=== PATIENT | female | born 1950 | race Caucasian/White ===

== ENCOUNTER → 2020-09-03 02:41 | Outpatient (CLI) | payer MEDICARE, OTHER, SELFPAY ==
[2020-09-03 21:05] LABS: SARS-CoV-2 RNA PCR Negative
== END ==
PROVIDERS: Visit Provider Surgery Plastic and Reconstructive Surgery
DX: Z01.812 Encounter for preprocedural laboratory examination (principal); Z20.822 Contact with and (suspected) exposure to COVID-19
CPT/HCPCS: C9803; U0003; U0005

== ENCOUNTER 2020-09-06 00:22 | Day surgery (SDC) | payer OTHER, SELFPAY ==
[2020-08-30 13:09] VITALS: BMI 18.7
--- NOTE | 2020-09-05 08:42 | P.PNAN_ITS ---
Anes - Initial Pre Proc Eval Procedure: Operation Date: 09/06/20 07:30 Proposed Procedures p Bilateral Breast Implant Exchange With Possible Capsulectomy - Nishant Ang MD Date/Time: 09/05/20 08:42 Surgeon: Nishant Ang MD Pre Op Diagnosis: Breast Implant Rupture Patient Data Age: 70 Gender: F Height: 1.59 m Weight: 47.27 kg Allergies Allergy/AdvReac Type Severity Reaction Status Date / Time Penicillins Allergy Rash Verified 08/30/20 13:01 Sulfa (Sulfonamide Allergy Rash Verified 08/30/20 13:01 Antibiotics) Home Medications Medication Instructions Recorded Confirmed Type calcium carbonate 600 mg PO DAILY 06/25/20 08/30/20 History cholecalciferol (vitamin D3) 50 50 mcg PO DAILY 06/25/20 08/30/20 History mcg (2,000 unit) capsule folic acid 400 mcg tablet 0.4 mg PO DAILY 06/25/20 08/30/20 History levothyroxine 75 mcg tablet 75 mcg PO DAILY 06/25/20 08/30/20 History meloxicam 7.5 mg tablet 7.5 mg PO DAILY 06/25/20 08/30/20 History multivitamin 1 cap PO DAILY 06/25/20 08/30/20 History docusate sodium 100 mg capsule 100 mg PO DAILY #14 cap 08/20/20 08/30/20 Rx ondansetron HCl 4 mg tablet 4 mg PO Q8H #28 tablet 08/20/20 08/30/20 Rx carisoprodol 350 mg tablet 350 mg PO TID PRN #21 tablet 08/22/20 08/30/20 Rx oxycodone-acetaminophen 5 mg-325 1 tablet PO Q6H PRN #15 tablet 08/22/20 08/30/20 Rx mg tablet omega [id number] oil [[place] 3 1 cap PO DAILY 08/30/20 08/30/20 History Fish Oil] Patient hx anesthesia problems: post op nausea/vomiting Family hx anesthesia problems: none PMFSH Past Medical History Medical History (Updated 09/05/20 @ 08:44 by Marcus Bishop DO) Arthritis Hypothyroidism Surgical History Surgical History History of breast augmentation 1986 History of cataract extraction Left 1993, Right 1999 History of thyroidectomy 1964 History of tubal ligation 1982 Social History Social History Smoking packs per day: 0.5 Smoking cigarettes per day: 10.0 Years smoked: 2 Smoking pack-years: 1.00 Smoking status: Former smoker Tobacco type: cigarettes Second hand tobacco smoke exposure: No Additional smoking assessment comments: QUIT 1980 Alcohol intake: current Drinks per week: 3 Alcohol use details: WINE Substance use: never Substance use type: does not use Living arrangements: alone Spiritual care concerns: No Anes - Eval Final PreProcedure Day of Procedure 09/05/20 08:42 Patient weight: thin Heart: regular rate and rhythm Lungs: clear to auscultation and normal air movement Airway: Mallampati scale class II Neurological: alert and oriented Last oral intake: >/= 8 hours ASA classification: II Emergent: no Anesthetic plan: proceed Anesthesia type and monitoring: general LMA and standard monitoring Informed Consent: The patient's anesthetic plan and its attendant risks and benefits were discussed with the patient/family/POA. Questions were solicited and answers provided to the satisfaction of the patient/family/POA.
[2020-09-06] VITALS (10 sets, daily range): BP systolic 119–161; BP diastolic 71–89; PULSE 60–74; RESP 12–18; TEMP 36.1–37; O2SAT 97–100
[2020-09-06] MEDS: LACTATED RINGERS 1,000 ML 30 ML IV CONT ×2 (06:33→09:02)
--- NOTE | 2020-09-06 07:00 | WPDHPUPDATE1 ---
History and Physical Update Update Date/Time: 09/06/20 07:00 History and Physical has been reviewed, including an updated exam of the patient. There are NO changes in the patient's condition. Risks, benefits, and alternatives have been discussed and questions answered. Patient agrees to proceed with procedure.
--- NOTE | 2020-09-06 07:18 | PM.PROC ---
Procedure Note - Detailed Date of procedure: 09/06/20 Pre-op diagnosis: Breast Implant Rupture Post-op diagnosis: same Procedure performed: Bilateral breast implant exchange Description of procedure: Patient was marked in the preoperative holding area with her verification. Risks, benefits, alternatives were discussed in extensive detail. I want her to be very realistic about the risks involved as well as expectations. She understands to achieve the goals she is looking for she may have to lower the IMF. This was marked out. As very up front honest about the risks of lowering the IMF immediate long-term. She would like to change the approach to an IMF approach as she previously had a periareolar approach. She understands is revisions would be at her expense. Answered all of her questions to her satisfaction today and consent obtained. She was taken to the operating room placed supine on the operating room table. Anesthesia was provided by anesthesiology and prepped and draped in a standard sterile fashion. Surgical time-out was taken. Tegaderm nipple Edward were placed. 1% lidocaine and 0.25% Marcaine with epinephrine was used to provide a field block. A 15 blade used to make an incision along the IMF. Dissection was continued down elevated just superficial to the capsule removing as much capsule as possible. Implants were removed bilateral. They were grossly ruptured. I copiously irrigated with more than 3 L of bacitracin containing saline solution on TUR tubing. I then changed gloves and again irrigated with an additional 3 L of bacitracin containing saline solution. I adjusted the capsule as necessary for good contour. Gloves then changed again. I did NOT have to adjust the IMF, once the capsule was removed her positioning was good. I verified strict hemostasis. Irrigated with triple antibiotic Betadine solution. Wash my gloves. Using a no-touch technique and a Hardwick funnel the implant was introduced into the pocket. I closed using 2-0 Vicryl. I placed in a sitting position to verify positioning. Then closed using 3-0 Monocryl followed by running subcuticular 4-0 Monocryl and tissue glue. Anesthesia: GLMA Surgeon: Nishant Ang MD Estimated blood loss (mL): 20 Drains: No Packing: No Pathology: none sent Complications: No immediate complications Condition: stable Disposition: PACU Findings: Previous implants were ruptured bilateral. Smooth silicone. New Implants Natrelle Inspira SoftTouch 335cc silicone implants. Right REF [facility] [place] SN [id number] Left REF [facility] SN [id number]
[2020-09-06] MEDS: ceFAZolin 2 GM/D5W 50 ML 2 GM/50 ML BAG IVPB (07:26)
[2020-09-06] MEDS: LIDO 1%/EPINEPHRINE 1:100,000 50 ML VIAL 20 ML INFILTRATE (08:13)
[2020-09-06] MEDS: ONDANSETRON INJ 4 MG/2 ML VIAL IV PUSH (09:10)
[2020-09-06] MEDS: fentaNYL CITRATE INJ (*CRX) 100 MCG/2 ML VIAL 25 MCG IV PUSH ×2 (09:57→10:05)
== END 2020-09-06 11:09 | disposition home or self-care (01) ==
PROVIDERS: Visit Provider Surgery Plastic and Reconstructive Surgery
PROC: (CPT 19325; principal; 2020-09-06 07:30)
DX: T85.41XA Breakdown (mechanical) of breast prosthesis and implant, initial encounter (principal); Y83.8 Other surgical procedures as the cause of abnormal reaction of the patient, or of later complication, without mention of misadventure at the time of the procedure; M19.90 Unspecified osteoarthritis, unspecified site; E89.0 Postprocedural hypothyroidism; Z87.891 Personal history of nicotine dependence
CPT/HCPCS: 19325; 19370; A9270; J0690; J1100; J1170; J1580; J2250; J2405; J2704; J3010; J7030; J7120; L8000